=== PATIENT | male | born 1960 | race Caucasian/White ===

== ENCOUNTER 2017-02-03 16:25 | Emergency (ER) | payer MEDICARE ==
[2017-02-03 17:15] LABS: HEMOGLOBIN 13.8 gm/dl (14.0-17.5); RED BLOOD COUNT 4.72 M/UL (4.20-5.50); WHITE BLOOD COUNT 11.7 K/UL (4.5-11.0)
[2017-02-03 17:43] LABS: BUN/CREATININE RATIO 23 (0-10)
== END 2017-02-03 21:36 ==
LOC: ER1 16:25
PROVIDERS: Emergency Medicine
DX: R56.9 Unspecified convulsions (principal); R51 Headache; R07.9 Chest pain, unspecified; E11.65 Type 2 diabetes mellitus with hyperglycemia; I10 Essential (primary) hypertension; E11.42 Type 2 diabetes mellitus with diabetic polyneuropathy; Z88.0 Allergy status to penicillin
CPT/HCPCS: 36415; 70450; 71010; 80053; 80307; 81001; 82009; 82550; 82553; 82803; 82962; 83605; 83735; 83874; 84484; 85025; 85379; 87086; 93005; 96361; 96374; 96375; 99285; G0480; J1200; J1953; J2405; J2765; J7030; J7040; J7050